=== PATIENT | female | born 1955 | race Caucasian/White ===

== ENCOUNTER 2017-04-20 12:06 | Emergency (ER) | payer BC, OTHER ==
[2017-04-20 12:28] VITALS: BP 121/76
--- NOTE | 2017-04-20 12:48 | UC ---
Bite Injury/Animal HPI - HPI Summary HPI Summary: tick bite x 1 day pt. removed the tick for the right side of her neck no fever, no chills, no joint pain , no rash 2. chest pain x 2 months pain is achy, no radiation , no cough , no sob - History of Current Complaint Chief Complaint: UCGeneralIllness Stated Complaint: TICK BITE Time Seen by Provider: 04/20/17 12:17 Hx Obtained From: Patient Hx Last Menstrual Period: n/a Severity Currently: Mild Severity Initially: Mild Onset/Duration: Gradual Onset, Lasting Days - 1, Resolved Type of Bite: Animal - tick bite Has Animal Been Immunized?: N/A Aggravating Factor(s): Nothing Alleviating Factor(s): Nothing Associated Signs And Symptoms: Positive: Negative Animal Available for Observation: Yes Animal Control Notified: No - Risk Factors Infection/Sepsis Risk Factors: Negative - Allergies/Home Medications Allergies/Adverse Reactions: Allergies Allergy/AdvReac Type Severity Reaction Status Date / Time No Known Allergies Allergy Verified 04/20/17 12:22 Home Medications: Home Medications Aspirin TAB* [Aspirin 325 MG TAB*] 325 - 650 mg PO Q6H PRN 04/20/17 [History Confirmed 04/20/17] Escitalopram Oxalate [Lexapro 10 mg] 10 mg PO DAILY 04/20/17 [History Confirmed 04/20/17] [id number] [Deplin 7.5] 1 cap PO DAILY 04/20/17 [History Confirmed 08/05] PMH/Surg Hx/FS Hx/Imm Hx Previously Healthy: Yes - Surgical History Surgical History: None Surgery Procedure, Year, and Place: lumpectomy s/p chemo and radiation - Family History Known Family History: Positive: Unknown - Social History Alcohol Use: Occasionally Substance Use Type: None Smoking Status (MU): Former Smoker Length of Time of Smoking/Using Tobacco: On and Off for 28 Years When Did the Patient Quit Smoking/Using Tobacco: ~1996 - Immunization History Most Recent Influenza Vaccination: February 2017 Review of Systems Constitutional: Negative Skin: Negative Eyes: Negative ENT: Negative Respiratory: Negative Cardiovascular: Negative Is Patient Immunocompromised?: No All Other Systems Reviewed And Are Negative: Yes Physical Exam Triage Information Reviewed: Yes Appearance: Well-Appearing, No Pain Distress, Well-Nourished Vital Signs: Initial Vital Signs Temp 98.2 F 04/20/17 12:19 Pulse 76 04/20/17 12:19 Resp 16 04/20/17 12:19 BP 121/76 04/20/17 12:19 Pulse Ox 98 04/20/17 12:19 Vital Signs Reviewed: Yes Eyes: Positive: Conjunctiva Clear ENT: Positive: Normal ENT inspection, Hearing grossly normal, Pharynx normal, Pharyngeal erythema Neck exam: Normal Neck: Positive: Supple, Nontender, No Lymphadenopathy Respiratory: Positive: Chest non-tender, Lungs clear, Normal breath sounds Cardiovascular: Positive: RRR, No Murmur, Pulses Normal Abdomen Description: Positive: Nontender, Soft. Negative: CVA Tenderness (R), CVA Tenderness (L), Distended, Guarding Bowel Sounds: Positive: Present Skin: Positive: Other - tick site: right side of neck, mild erythema Bite Injury Course/Dx - Differential Dx/Diagnosis Provider Diagnoses: tick bite. atypical chest pain Discharge - Discharge Plan Condition: Stable Disposition: HOME Prescriptions: DOXYcycline CAP(*) [DOXYcycline 100MG CAP(*)] 200 mg PO ONCE #2 cap Patient Education Materials: Tick Bite (ED) Referrals: Godfrey Morales MD [Primary Care Provider] - If Needed
== END 2017-04-20 12:50 | disposition home or self-care (01) ==
LOC: UCCORT 12:06
DX: S10.96XA Insect bite of unspecified part of neck, initial encounter (principal); R07.89 Other chest pain; W57.XXXA Bitten or stung by nonvenomous insect and other nonvenomous arthropods, initial encounter; Y92.9 Unspecified place or not applicable; Z87.891 Personal history of nicotine dependence
CPT/HCPCS: 93005; 99212; G0463